=== PATIENT | female | born 1940 | race Caucasian/White ===

== ENCOUNTER 2021-05-06 09:45 | Outpatient (CLI) | payer MEDICARE ==
[2021-05-07 06:39] LABS: SARS-CoV-2 NAA Rapid Test Not Detected (NotDetected)
== END 2021-05-06 09:46 | disposition home or self-care (01) ==
LOC: LABBT 09:45
PROVIDERS: ATTEND Surgery
DX: Z01.818 Encounter for other preprocedural examination (principal); K40.90 Unilateral inguinal hernia, without obstruction or gangrene, not specified as recurrent; Z20.822 Contact with and (suspected) exposure to COVID-19
CPT/HCPCS: 93005; U0003; U0005; 93010; U0002

== ENCOUNTER 2021-05-07 05:54 | Day surgery (SDC) | payer MEDICARE ==
[2021-05-01 09:59] VITALS: BMI 31.8
[2021-05-07] MEDS ORDERED: Fentanyl 100 MCG/2 ML VIAL ONE ×2 (06:40→08:46)
[2021-05-07] MEDS ORDERED: Dexmedetomidine 200 MCG/2 ML VIAL ONE (06:40)
[2021-05-07] MEDS ORDERED: Xylocaine 1% w/ Epi 1:100K 10 ML VIAL ONE (06:55)
[2021-05-07] MEDS ORDERED: Bupivacaine 0.25% HCL 30 ML VIAL ONE (06:55)
[2021-05-07] MEDS ORDERED: ceFAZolin 2 GM/Dextrose 50 ML IVPB ONE (07:24)
[2021-05-07] MEDS ORDERED: Rocuronium Bromide 10 MG/ML (10ML VIAL) ONE (07:39)
[2021-05-07] MEDS ORDERED: PROPOFOL 200 MG/20 ML VIAL ONE (07:39)
[2021-05-07] MEDS ORDERED: Ondansetron PF 4 MG/2 ML Vial ONE (07:39)
[2021-05-07] MEDS ORDERED: Lidocaine 1% PF 5 ML VIAL ONE (07:39)
[2021-05-07] MEDS ORDERED: Dexamethasone 20 MG/5 ML VIAL ONE (07:39)
[2021-05-07] MEDS ORDERED: Glycopyrrolate 0.2 MG/ML 5 ML SYRINGE ONE (07:39)
[2021-05-07] MEDS ORDERED: ePHEDrine 50 MG/ML VIAL ONE (07:39)
[2021-05-07] MEDS ORDERED: HYDROcodone/Acetaminophen 5/325 mg Tablet ONE (10:28)
== END 2021-05-07 13:45 | disposition home or self-care (01) ==
LOC: SDC 05:54
PROVIDERS: ATTEND Surgery
PROC: 0YU54JZ Supplement Right Inguinal Region with Synthetic Substitute, Percutaneous Endoscopic Approach (ICD-10-PCS; principal; 2021-05-07)
DX: K40.90 Unilateral inguinal hernia, without obstruction or gangrene, not specified as recurrent (principal); E78.00 Pure hypercholesterolemia, unspecified; I11.9 Hypertensive heart disease without heart failure; Z79.899 Other long term (current) drug therapy; Z88.5 Allergy status to narcotic agent; Z91.040 Latex allergy status
CPT/HCPCS: J0690; J1100; J2405; J2704; J3010; J3490; S0020